=== PATIENT | female | born 1950 | race Caucasian/White ===

== ENCOUNTER 2023-10-03 19:12 | Emergency (ER) | payer OTHER ==
[2023-10-03 19:18] VITALS: BMI 21.1
[2023-10-03] MEDS ORDERED: SODIUM CHLORIDE 0.9% 500 ML INFUS.BAG IV ONE (20:17)
[2023-10-03 20:48] LABS: BASO % 0.9 % (0-2.0); EOS % 2.5 % (0-4.5); HEMATOCRIT 41.6 % (32.4-45.2); HEMOGLOBIN 13.9 GM/dL (10.7-15.3); LYMPH % 30.4 % (8-40); MCH 28.2 pg (25.7-33.7); MCHC 33.4 g/dl (32.0-36.0); MEAN CELL VOLUME 84.4 fl (80-96); MEAN PLT VOLUME 7.7 fl (7.5-11.1); MONO % 11.7 % (3.8-10.2); NEUT % 54.5 % (42.8-82.8); PLATELET COUNT 299 10^3/uL (134-434); RBC 4.93 M/mm3 (3.60-5.2); RDW 13.4 % (11.6-15.6); WHITE BLOOD COUNT 6.7 K/mm3 (4.0-10.0)
[2023-10-03 21:07] LABS: POTASSIUM 4.1 mmol/L (3.5-5.1)
[2023-10-03 21:09] LABS: CALCIUM 9.4 mg/dL (8.5-10.1)
[2023-10-03 21:10] LABS: ALBUMIN 3.7 g/dl (3.4-5.0); BLOOD UREA NITROGEN 28.4 mg/dL (7-18)
[2023-10-03 21:13] LABS: CREATININE 0.8 mg/dL (0.55-1.3)
[2023-10-03 21:14] LABS: TOT PROT 7.2 g/dl (6.4-8.2)
[2023-10-03 21:15] LABS: BILIRUBIN,TOTAL 0.2 mg/dL (0.2-1)
[2023-10-03 22:01] LABS: EPI CELLS 10 /uL (0-25.1); HYALINE CASTS 1 /uL (0-3.1); URINE APPEARANCE CLEAR; URINE BACTERIA 530 /uL (0-1359); URINE BILIRUBIN NEGATIVE (NEGATIVE); URINE COLOR YELLOW; URINE GLUCOSE (UA) NEGATIVE (NEGATIVE); URINE KETONE NEGATIVE (NEGATIVE); URINE LEUK ESTERASE 3+ (NEGATIVE); URINE NITRITE NEGATIVE (NEGATIVE); URINE PROTEIN NEGATIVE (NEGATIVE); URINE RBC 18 /uL (0-23.9); URINE UROBILINOGEN 0.2 mg/dL (0.2-1.0); URINE WBC 333 /uL (0-25.8)
[2023-10-03] MEDS ORDERED: CEFTRIAXONE 1 GM/50 ML BAG ONE (22:33)
[2023-10-04 00:18] VITALS: BP 182/80; PULSE 75; RESP 16; TEMP 97.7
== END 2023-10-04 01:08 | disposition home or self-care (01) ==
LOC: JER 19:12
DX: R30.0 Dysuria (principal); L29.2 Pruritus vulvae; R19.7 Diarrhea, unspecified; R07.2 Precordial pain
CPT/HCPCS: 36415; 71045-TC-FY; 74177-TC; 80053; 81003; 83690; 84484; 85025; 87086; 93005; 93010; 99285-25; Q9967